=== PATIENT | female | born 1980 | race African-American/Black ===

== ENCOUNTER 2021-04-13 02:57 | Inpatient (IN) | payer SELFPAY ==
[~2021-04-13] VITALS: Ht 167.6 cm; Wt 108.9 kg
[2021-04-13 03:09] VITALS: BP_SYST 118
[2021-04-13] MEDS ORDERED: KETOROLAC TROMETHAMINE 30 MG VIAL IM ONE (03:30)
[2021-04-13] MEDS ORDERED: IPRATROPIUM/ALBUTEROL SULFATE 3 ML AMPUL.NEB (DUONEB) INH ONE (03:30)
[2021-04-13] MEDS ORDERED: methylPREDNISolone SOD SUCC/PF 62.5 MG/ML VIAL IM ONE (03:30)
[2021-04-13] MEDS ORDERED: DIPHENHYDRAMINE INJ 50 MG/ML VIAL IM ONE (03:30)
[2021-04-13] MEDS ORDERED: cefTRIAXone 1 GM in D5W 50 ML IV ONE (06:15)
[2021-04-13] MEDS ORDERED: NALOXONE HCL 0.4 MG/ML AMP (NARCAN) IVP PRN (06:30)
[2021-04-13] MEDS ORDERED: ONDANSETRON HCL 4 MG/2 ML VIAL IVP PRN (06:30)
[2021-04-13] MEDS ORDERED: MORPHINE 2 MG/ML INJ. SYRINGE IVP PRN (06:30)
[2021-04-13] MEDS ORDERED: ACETAMINOPHEN 325 MG TABLET PO PRN (06:30)
[2021-04-13 06:58] LABS: BASOPHILS % (AUTO) 0.3 % (0.0-2.0); EOSINOPHILS # (AUTO) 0.1 K/uL (0.0-0.4); EOSINOPHILS % (AUTO) 1.9 % (0.0-4.0); HEMATOCRIT 38.8 % (36-48); HEMOGLOBIN 13.5 g/dL (12.0-16.0); LYMPHOCYTES # (AUTO) 1.7 K/uL (1.0-5.5); LYMPHOCYTES % (AUTO) 27.4 % (20.5-51.5); MEAN CORPUSCULAR HEMOGLOBIN 29 pg (27-31); MEAN CORPUSCULAR HGB CONC 35 % (32-36); MEAN CORPUSCULAR VOLUME 83 fL (79.0-98.0); MONOCYTES # (AUTO) 0.3 K/uL (0.0-1.0); MONOCYTES % (AUTO) 5.5 % (1.7-9.3); NEUTROPHILS % (AUTO) 64.9 % (40.0-70.0); PLATELET COUNT (AUTO) 223 K/uL (130-430); RED BLOOD CELL COUNT(AUTO) 4.71 MIL/uL (4.2-6.2); RED CELL DISTRIBUTION WIDTH 14.4 % (9.0-15.0); WHITE BLOOD COUNT (AUTO) 6.1 K/uL (4.8-10.8)
[2021-04-13 07:15] LABS: CALCIUM 8.5 mg/dL (8.4-11.0); CREATININE 0.59 mg/dL (0.55-1.30)
[2021-04-13 07:20] LABS: ALBUMIN 3.7 g/dL (3.4-4.8); TOTAL BILIRUBIN 0.4 mg/dL (0.0-1.0)
[2021-04-13] MEDS ORDERED: ZIA2.5/6.25 PO (08:40)
[2021-04-13] MEDS ORDERED: NEU400 PO (08:40)
[2021-04-13] MEDS ORDERED: GLU500 PO (08:40)
[2021-04-13] MEDS ORDERED: BENA20TA9 PO (08:40)
[2021-04-13] MEDS ORDERED: HYDR25TA4 PO (08:40)
[2021-04-13] MEDS ORDERED: TIZA4TAB6 PO (08:40)
[2021-04-13] MEDS ORDERED: DIPHENHYDRAMINE INJ 50 MG/ML VIAL ONE (08:48)
[2021-04-13] MEDS: HYDROcodone/ACETAMIN 5-325 MG TAB (NORCO/ VICODIN) PO PRN ×3 (09:25→18:28)
[2021-04-13] MEDS: methylPREDNISolone SOD SUCC 40 MG/ML VIAL IVP SCH ×2 (09:25→20:34)
[2021-04-13] MEDS: DIPHENHYDRAMINE INJ 50 MG/ML VIAL IVP SCH ×3 (11:24→23:33)
[2021-04-13 12:19] VITALS: BP_SYST 136
[2021-04-13] MEDS ORDERED: NORMAL SALINE 5 ML DISP.SYRIN IVF SCH (14:00)
[2021-04-13] MEDS: NORMAL SALINE 5 ML DISP.SYRIN IVF SCH ×2 (14:26→21:10)
[2021-04-13 14:46] VITALS: BP_SYST 130
[2021-04-13 16:12] VITALS: BP_SYST 140
[2021-04-13 20:00] VITALS: BP_SYST 144
[2021-04-13] MEDS ORDERED: MORPHINE 2 MG/ML INJ. SYRINGE IVP ONE (20:30)
[2021-04-13] MEDS: INSULIN REGULAR, HUMAN 100 UNITS/ML, 10 ML VIAL (humuLIN R) SUBCUT PRN (21:47)
[2021-04-13] MEDS: LORazepam 2 MG/ML VIAL IVP PRN (23:50)
[2021-04-14] VITALS: BP_SYST 142
[2021-04-14] MEDS: HYDROcodone/ACETAMIN 5-325 MG TAB (NORCO/ VICODIN) PO PRN (01:15)
[2021-04-14] MEDS ORDERED: tiZANidine HCL 4 MG TABLET PO PRN (04:30)
[2021-04-14] MEDS ORDERED: LORazepam 2 MG/ML VIAL IVP PRN (04:30)
[2021-04-14] MEDS ORDERED: OXYCODONE/ACETAMINOPHEN 5-325 TABLET PO PRN (04:30)
[2021-04-14] MEDS ORDERED: ONDANSETRON HCL 4 MG/2 ML VIAL IVP PRN (04:30)
[2021-04-14] MEDS: NORMAL SALINE 5 ML DISP.SYRIN IVF SCH ×3 (05:51→23:03)
[2021-04-14] MEDS: DIPHENHYDRAMINE INJ 50 MG/ML VIAL IVP SCH ×4 (05:52→23:01)
[2021-04-14] MEDS ORDERED: NORMAL SALINE 5 ML DISP.SYRIN IVF SCH (06:00)
[2021-04-14] MEDS: HYDROmorphone 2 MG/ML VIAL IVP PRN ×4 (06:07→20:38)
[2021-04-14] MEDS: metFORMIN HCL 500 MG TABLET PO SCH ×2 (08:38→17:17)
[2021-04-14] MEDS: GABAPENTIN 400 MG CAPSULE PO SCH ×2 (08:38→20:37)
[2021-04-14] MEDS: methylPREDNISolone SOD SUCC 40 MG/ML VIAL IVP SCH ×2 (08:38→20:36)
[2021-04-14] MEDS: lisinopriL 20 MG TABLET PO SCH (08:39)
[2021-04-14] MEDS: HYDROCHLOROTHIAZIDE 25 MG TABLET (HCTZ) PO SCH (08:39)
[2021-04-14 08:44] VITALS: BP_SYST 131
[2021-04-14] MEDS ORDERED: HYDROCHLOROTHIAZIDE PO SCH (09:00)
[2021-04-14] MEDS ORDERED: BISOPROL PO SCH (09:00)
[2021-04-14] MEDS: LORazepam 2 MG/ML VIAL IVP PRN ×3 (09:07→23:01)
[2021-04-14 12:05] VITALS: BP_SYST 143
[2021-04-14] MEDS: INSULIN REGULAR, HUMAN 100 UNITS/ML, 10 ML VIAL (humuLIN R) SUBCUT PRN ×2 (13:03→20:45)
[2021-04-14 16:21] VITALS: BP_SYST 140
[2021-04-14 20:00] VITALS: BP_SYST 141
[2021-04-15] VITALS: BP_SYST 121
[2021-04-15] MEDS: HYDROmorphone 2 MG/ML VIAL IVP PRN ×4 (00:44→15:02)
[2021-04-15] MEDS: LORazepam 2 MG/ML VIAL IVP PRN ×3 (04:24→16:06)
[2021-04-15] MEDS: DIPHENHYDRAMINE INJ 50 MG/ML VIAL IVP SCH ×2 (06:05→12:37)
[2021-04-15] MEDS: NORMAL SALINE 5 ML DISP.SYRIN IVF SCH ×2 (06:06→15:08)
[2021-04-15 06:59] LABS: BASOPHILS % (AUTO) 0.2 % (0.0-2.0); HEMATOCRIT 40.5 % (36-48); HEMOGLOBIN 13.9 g/dL (12.0-16.0); LYMPHOCYTES # (AUTO) 2.1 K/uL (1.0-5.5); LYMPHOCYTES % (AUTO) 13.7 % (20.5-51.5); MEAN CORPUSCULAR HEMOGLOBIN 29 pg (27-31); MEAN CORPUSCULAR HGB CONC 34 % (32-36); MEAN CORPUSCULAR VOLUME 84 fL (79.0-98.0); MONOCYTES % (AUTO) 6.3 % (1.7-9.3); NEUTROPHILS # (AUTO) 12.2 K/uL (1.8-7.7); NEUTROPHILS % (AUTO) 79.8 % (40.0-70.0); PLATELET COUNT (AUTO) 198 K/uL (130-430); RED BLOOD CELL COUNT(AUTO) 4.84 MIL/uL (4.2-6.2); RED CELL DISTRIBUTION WIDTH 14.1 % (9.0-15.0); WHITE BLOOD COUNT (AUTO) 15.2 K/uL (4.8-10.8)
[2021-04-15 07:34] LABS: CALCIUM 8.5 mg/dL (8.4-11.0); CREATININE 0.59 mg/dL (0.55-1.30); POTASSIUM 4.5 mmol/L (3.5-5.1); TOTAL BILIRUBIN 0.6 mg/dL (0.0-1.0)
[2021-04-15 08:56] VITALS: BP_SYST 137
[2021-04-15] MEDS: metFORMIN HCL 500 MG TABLET PO SCH (09:27)
[2021-04-15] MEDS: methylPREDNISolone SOD SUCC 40 MG/ML VIAL IVP SCH (09:27)
[2021-04-15] MEDS: HYDROCHLOROTHIAZIDE 25 MG TABLET (HCTZ) PO SCH (09:27)
[2021-04-15] MEDS: GABAPENTIN 400 MG CAPSULE PO SCH (09:27)
[2021-04-15] MEDS: lisinopriL 20 MG TABLET PO SCH (09:28)
[2021-04-15 13:12] VITALS: BP_SYST 135
[2021-04-15] MEDS ORDERED: HYDR25TA4 PO (13:21)
[2021-04-15] MEDS ORDERED: OXYC-128 PO (13:21)
[2021-04-15] MEDS ORDERED: BENA20TA9 PO (13:21)
[2021-04-15] MEDS ORDERED: ONDA4TAB5 PO (13:21)
[2021-04-15] MEDS ORDERED: NEU400 PO (13:21)
[2021-04-15] MEDS ORDERED: ATEN-166 PO (13:21)
[2021-04-15] MEDS ORDERED: GLU500 PO (13:21)
[2021-04-15] MEDS ORDERED: TIZA4TAB6 PO (13:21)
[2021-04-15 15:47] VITALS: BP_SYST 135
[2021-04-15 16:35] VITALS: BP_SYST 147
[2021-04-16] MEDS ORDERED: ATENOLOL 25 MG TABLET(TENORMIN) PO SCH (09:00)
[2021-04-16] MEDS ORDERED: HYDROCHLOROTHIAZIDE 12.5 MG CAPSULE (HCTZ) PO SCH (09:00)
== END 2021-04-15 17:00 | disposition home or self-care (01) | DRG 916 ==
LOC: SED 02:57 → STU 05:52 → SMU 04-14 04:40
PROVIDERS: ADMIT Preventive Medicine Preventive Medicine/Occupational Environmental Medicine; ATTEND Preventive Medicine Preventive Medicine/Occupational Environmental Medicine
DX: T78.3XXA Angioneurotic edema, initial encounter (principal); T78.2XXA Anaphylactic shock, unspecified, initial encounter; I10 Essential (primary) hypertension; E11.9 Type 2 diabetes mellitus without complications; I88.9 Nonspecific lymphadenitis, unspecified; J39.2 Other diseases of pharynx; Z20.822 Contact with and (suspected) exposure to COVID-19; E66.9 Obesity, unspecified; Z68.38 Body mass index [BMI] 38.0-38.9, adult
CPT/HCPCS: 36415; 70486-TC; 70490; 76376; 80053; 82962; 85025; 87040-TC; 94640; 96365; 96372; 96375; 99291; G0378; J1030; J1170; J1200; J1815; J1885; J2060; J2270; J2930